=== PATIENT | male | born 1950 | race Caucasian/White ===

== ENCOUNTER 2024-04-28 20:56 | Emergency (ER) | payer OTHER, SELFPAY ==
[2024-04-28] VITALS (9 sets, daily range): BP systolic 124–162; BP diastolic 56–81; PULSE 61–78; RESP 16–18; TEMP 36.8; O2SAT 96–99; BMI 33.5
--- NOTE | 2024-04-28 21:25 | ED.LOWEXIN ---
HPI - Extremity Injury (Lower) General Chief Complaint: Extremity Injury, Lower Stated Complaint: lt knee pain Time Seen by Provider: 04/28/24 21:21 Source: patient Mode of arrival: Ambulatory History of Present Illness HPI Narrative: 74-year-old male with history of throat cancer treated with radiation, patient presents with complaint of left knee pain states he initially injured it while golfing approximately a month ago. Slowly improved over time he has had PT and been using a knee brace at times. Patient states he had attended PT this Tuesday. He states a couple hours later had some increased pain in the knee but states he had done some weights which was new. He states the following day he went to the beach to help a friend push a very water logged heavy small boat. He states the ground felt very uneven any had a significant increase in pain while helping with this task. And when he bent over without bending his knee to pick something up felt a significant increase in pain in his knee. Patient states since then he has had pain with weight-bearing that is increased. He states it was quite swollen initially feels more swollen. He has iced it he has been taking Tylenol regularly. He states it has not been improving and he has been quite uncomfortable. States it is still painful to weightbear, no numbness or tingling or weakness. He states particular movements seemed to make it worse. Patient does have some increased pain with flexion-extension but is able to go through range of motion. He states he did not feel any snap or pops with the initial injury. Patient denies any other injuries. He has had a meniscal injury on the right knee in the past but never required repair. He states no daily medications. No prior surgeries except for throat biopsies. States allergy to aspirin and does not tolerate NSAIDs develops rash with both. No tobacco, does use alcohol, no recreational drugs. Discussed with patient he did not have an x-ray of his knee at any point. Related Data Previous Rx's Medication Instructions Recorded oxycodone 5 mg tablet 5 mg PO Q6H PRN pain #10 tabs 04/28/24 Allergies Allergy/AdvReac Type Severity Reaction Status Date / Time aspirin Allergy Hives Verified 04/28/24 21:45 Review of Systems Review of Systems ROS Unobtainable: All systems reviewed & are unremarkable except as noted in HPI and below Patient History Social History Smoking Status: Never smoker Smoking Status: Never smoker alcohol intake frequency: a few times a week Alcohol type: beer and hard liquor Substance Use Type: former substance user Exam Narrative Exam Narrative: GENERAL: Alert and oriented x three, mild distress. HEENT: Head normocephalic, atraumatic, EOMI, pupils reactive, face symmetric, moist mucous membranes NECK: Supple, full range of motion CARDIOVASCULAR: Regular rate and rhythm without murmurs, rubs or gallops. RESPIRATORY: Breath sounds equal bilaterally, no wheezes rales or rhonchi. ABDOMEN: Soft, nontender. Normoactive bowel sounds all 4 quadrants. No guarding or rebound, rigidity, no mass EXTREMITIES: Normal range of motion, no clubbing or edema. Neurovascularly intact. Patient does not have any specific bony tenderness just have some generalized tenderness over the knee. Does have some increased discomfort with movement of the kneecap but seems most tender lateral to the knee cap in the soft tissue. Not particularly tender over the tibial plateau. No tenderness in the foot or ankle, no tenderness in the hip. Tibia and fibula are nontender. Patient does have a little bit of laxity with anterior drawer. Has a little bit of discomfort with compression test. Also increased tenderness with valgus testing. Warmth, no erythema, slight swelling compared to the right knee. Normal sensation throughout. 2+ pulses. No ecchymosis, erythema or rash. NEUROLOGICAL: Cranial nerves II through XII grossly intact. Moving all extremities SKIN: Warm, dry, no petechiae, no rashes or lesions. Initial Vital Signs Initial Vital Signs: Vital Signs Pulse Rate 78 04/28/24 21:04 Blood Pressure 162/74 H 04/28/24 21:04 Pulse Oximetry 98 04/28/24 21:04 Course Orders Ordered: ED Orders 04/28/24 21:36 XR knee LT 3V Stat Discontinued Medications Oxycodone HCl (Oxycodone Ir 5 Mg Tablet) 5 mg PO NOW ONE Stop: 04/28/24 21:37 Last Admin: 04/28/24 21:44 Dose: 5 mg Documented By: SERGEI Oxycodone/Acetaminophen (Oxycodone/Apap 5/325 Prepack) 1 bottle MISC DIRECTED ONE Stop: 04/28/24 22:20 Last Admin: 04/28/24 22:45 Dose: 1 bottle Documented By: AB Vital Signs Vital signs: Vital Signs - 8 hr 04/28/24 21:04 04/28/24 21:04 04/28/24 21:08 Temperature 98.2 F Pulse Rate 78 72 Respiratory Rate 18 Blood Pressure 162/74 H 162/71 H Pulse Oximetry 98 98 Oxygen Delivery Method Room Air 04/28/24 21:30 04/28/24 21:31 04/28/24 21:31 Temperature Pulse Rate 76 75 Respiratory Rate Blood Pressure 158/81 H Pulse Oximetry 97 97 Oxygen Delivery Method 04/28/24 22:00 04/28/24 22:01 04/28/24 22:01 Temperature Pulse Rate 70 67 Respiratory Rate Blood Pressure 125/58 L Pulse Oximetry 97 97 Oxygen Delivery Method 04/28/24 22:30 04/28/24 22:31 04/28/24 22:31 Temperature Pulse Rate 65 61 Respiratory Rate Blood Pressure 124/56 L Pulse Oximetry 97 96 Oxygen Delivery Method 04/28/24 22:51 Temperature Pulse Rate 66 Respiratory Rate 16 Blood Pressure 124/56 L Pulse Oximetry 99 Oxygen Delivery Method Room Air MDM - Extremity Injury (Lower) Imaging Data Extremity x-ray #1: Radiologist's Impression: Close Knee X-Ray (Signed) Gabriele Ng - 04/28/24 [place] [address] XRay Report Signed Patient: Rao Thompson MR#: [id number] : 1950 Acct:[id number] Age/Sex: 74 / M Date of Service: 04/28/24 Loc: ED Accession Number: [id number] Procedure: XR knee LT 3V Ordering Provider: Harriett Taveras D.O. PROCEDURE: XR KNEE LT 3V INDICATIONS: left knee injury 1 month ago, re-injured, cannot wgt bare. TECHNIQUE: 3 views of the knee were acquired. COMPARISON: None. FINDINGS: Bones: No fractures or dislocations. No suspicious bony lesions. Soft tissues: Small joint effusion. No suspicious soft tissue calcifications. IMPRESSION: Small joint effusion. No fracture Approved by: Gabriele Ng M.D. on 04/28/2024 at 21:06 [facility] Narrative Medical decision making narrative: 74-year-old with injury to his left knee which was likely aggravated by activities in the last several days. Patient is having pain with weight-bearing does not have any real specific bony tenderness on examination but does have discomfort throughout does have some joint laxity testing anterior drawer as well as increased discomfort with valgus motion and compression test. X-ray was obtained to rule out any fracture. The x-ray shows small joint effusion, no fracture. Plan to continue with knee immobilizer, crutches, patient can continue with Tylenol can not tolerate NSAIDs we will give short course of pain medication. Patient has already got physical therapy and follow-up with his physician. Discharge Plan Departure Patient Disposition: Home Clinical Impression: Knee pain, left Activity Restrictions/Additional Instructions: Follow up with your physician in the next week recheck. Continue to follow up with physical therapy. I did include contact for follow up with Orthopedic surgery if your symptoms are persisting. Use in the immobilizer as provided, if your symptoms improve you can start to use your regular knee immobilizer. Use crutches as needed, you may weightbear as tolerated. Continue with the Tylenol up to a 1000 mg every 6 hours as needed. You can take oxycodone 1-2 tablets every 6 hours as needed for pain. This medication can make you sleepy do not drive, perform hazardous activities or make any major decisions while taking it. This medication will make you constipated please take a stool softener once to twice daily until stools are soft and regular. Prescription sent to [facility] Splint Care: Keep splint clean and dry. Elevated affected body part to decrease swelling. OK to use ice pack on the affected body part. Use for 15-20 minutes each time, for 5-6x per day. If you develop worsening pain, numbness, tingling, discoloration of the affected body part, loosen the splint by loosening the NATAN wrap, and either see your doctor for an urgent re-assessment, or return to the Emergency Department. Return to the Emergency Department for any new or worsening symptoms. Prescriptions: New oxycodone 5 mg tablet 5 mg PO Q6H PRN (Reason: pain) Qty: 10 0RF Referrals: Samuel Allred MD [Primary Care Provider] - Gabriele Casas MD [Physician] - Stand Alone Forms: Patient Portal/API
--- NOTE | 2024-04-28 21:36 | DI.RAD.S_ITS ---
PROCEDURE: XR KNEE LT 3V INDICATIONS: left knee injury 1 month ago, re-injured, cannot wgt bare. TECHNIQUE: 3 views of the knee were acquired. COMPARISON: None. FINDINGS: Bones: No fractures or dislocations. No suspicious bony lesions. Soft tissues: Small joint effusion. No suspicious soft tissue calcifications. IMPRESSION: Small joint effusion. No fracture Approved by: Gabriele Ng M.D. on 04/28/2024 at 21:06
[2024-04-28] MEDS: OXYCODONE IR 5 MG TABLET PO (21:44)
[2024-04-28] MEDS: OXYCODONE/APAP 5/325 PREPACK 1 BOTTLE MISC (22:45)
== END 2024-04-28 22:56 | disposition home or self-care (01) ==
PROVIDERS: Emergency Provider Emergency Medicine; PCP Family Medicine
DX: M25.562 Pain in left knee (principal)
CPT/HCPCS: 73562; 99283